=== PATIENT | male | born 1965 | race Caucasian/White ===

== ENCOUNTER 2017-04-18 10:11 | Emergency (ER) | payer OTHER ==
[~2017-04-18] VITALS: Ht 172.7 cm; Wt 77.6 kg
[2017-04-18 10:27] VITALS: BP 158/90; PULSE 92; TEMP 36.9; O2SAT 98; Ht 172.7 cm; Wt 77.6 kg
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
== END 2017-04-18 11:47 | disposition home or self-care (01) ==
LOC: C.EDB 10:13 → C.EDD 11:47
DX: S30.0XXA Contusion of lower back and pelvis, initial encounter (principal); V09.20XA Pedestrian injured in traffic accident involving unspecified motor vehicles, initial encounter; Y99.0 Civilian activity done for income or pay; F17.220 Nicotine dependence, chewing tobacco, uncomplicated